=== PATIENT | male | born 1960 | race Caucasian/White ===

== ENCOUNTER 2020-11-12 01:35 | Outpatient (CLI) | payer OTHER, SELFPAY ==
--- NOTE | 2020-11-12 | DI.US_ITS ---
APPROVED REPORT EXAM: Comprehensive 2D, Doppler, and color-flow Echocardiogram Patient Location: Out-Patient Maintenance Painter: Meghann Trevino RDCS (AE) Indications: Murmur, HTN Other Information Study Quality: Good Conclusion Left Ventricle : The left ventricle is normal size. There is normal left ventricular wall thickness. The left ventricular ejection fraction is within the normal range. There is normal LV segmental wall motion. The left ventricular diastolic function is normal. LVEF is 58%. Right Ventricle : The right ventricle is normal size. The right ventricular systolic function is norm al. The RVSP is 22.6mmHg. Atria : The left atrium size is normal. The right atrium size is normal. Valves: There are no hemodynamically significant valvular lesions. Great Vessels : The aortic root is normal in size. The ascending aorta is normal in size. Aortic arch is normal in caliber. IVC is normal in size and collapses >50% with inspiration. Please see remainder of study for further details. Wall motion Left Ventricle The left ventricle is normal size. The left ventricular ejection fraction is within the normal range. There is normal left ventricular wall thickness. There is normal LV segmental wall motion. The left ventricular diastolic function is normal. There is no ventricular septal defect visualized. LVEF is 5 8%. Right Ventricle The right ventricle is normal size. The right ventricular systolic function is normal. The RVSP is 22 .6mmHg. Atria The left atrium size is normal. The right atrium size is normal. The interatrial septum is intact wit h no evidence for an atrial septal defect. Aortic Valve The Aortic valve is sclerotic. Aortic valve is trileaflet. No hemodynamically significant valvular ao rtic stenosis. Trace aortic regurgitation. Mitral Valve The mitral valve is normal in structure. No evidence of mitral valve stenosis. Trace mitral regurgita tion. Tricuspid Valve The tricuspid valve is normal in structure. There is no tricuspid valve stenosis. Trace tricuspid reg urgitation. Pulmonic Valve The pulmonary valve is normal in structure. There is no pulmonic valvular stenosis. Trace pulmonic re gurgitation. Great Vessels The aortic root is normal in size. The ascending aorta is normal in size. Aortic arch is normal in ca liber. IVC is normal in size and collapses >50% with inspiration. Pericardium There is no pericardial effusion. 2D Dimensions IVSD d PLAX 1.01 cm M: 0.6-1.2 LV Vol A2C d MOD 110.6 mL LVPW d PLAX 0.99 cm M: 0.6 - 1.2 LV Vol A4C d MOD 130.3 mL LVID d PLAX 4.63 cm M: 4.2 - 5.8 LA vol/ BSA A2C s A-L 25.2 mL/m2 LVDs 3.20 cm M: 2.5 - 4.0 LA vol/ BSA A4C s A-L 18.2 mL/m2 Ao Root d 2.79 cm M: 3.1 - 3.7 LA Vol/ BSA Biplane s A-L 21.6 mL/m2 RA Area A4C 13.86 cm2 LA Area A4C s MOD 16.17 cm2 RA Vol/ BSA A4C s A-L 14.7 mL/m2 LA Area A2C s MOD 18.85 cm2 Ao Asc Diam d 3.29 cm M: 2.6 - 3.4 LV EF A4C MOD 58.5 % LV EF Teichholz 57.7 % LV EF A2C MOD 58.1 % LVEF (Stone's) 57.85 % M: 52 - 72 LV EF Biplane MOD 57.9 % LV Volume 88.86 mL M: 62 - 150 SV 71.43 mL LV Volume Index 39.14 mL/m2 M: 34 - 74 SV Index 31.39 mL/m2 LV Vol Biplane MOD 123.5 mL FS 30.30 % M-Mode TAPSE 1.66 cm (M/F) >1.7 LV Diastology MV E' medial 0.065 (>0.07 m/s) E/A Ratio 1.1 LV E/e MED 12.00 (<14) MV E Vmax 0.78 (0.4-1.3 m/s) MV E' lateral 0.120 (>0.1 m/s) MV A Vmax 0.70 (0.4-1.3 m/s) LV E/e LAT 6.45 (<14) MV E/A Ratio 1.06 MV E/E' medial 12.05 MV E/E' lateral 6.46 Aortic Valve LVOT Area 3.01 cm2 AoV Area Vmax 1.78 cm2 LVOT Vmax 1.20 m/s AoV Area/ BSA (Vmax) 0.78 cm2/m2 LVOT Mean Brendan. 0.87 m/s SHARITA Mean Brendan. 1.76 cm2 LVOT Peak Grad 5.7 mmHg SHARITA Mean Brendan. Index 0.77 cm2/m2 LVOT Mean Grad 3.4 mmHg LVOT VTI 0.286 m LVOT Diam s 1.95 cm AoV Vmax 2.03 m/s Velocity Ratio 0.59 AoV Mean Brendan. 1.50 m/s AoV Peak Grad 16.5 mmHg LVOT SV 86.11 mL AoV Mean Grad 10.0 mmHg AoV VTI 0.484 m AoV Area VTI 1.78 cm2 AoV Area/ BSA (VTI) 0.78 cm/m2 Mitral Valve MV DT 222 (160-240 msec) MV PHT 64 msec MV Area PHT 3.42 cm2 MV VTI 0.280 m MV Area VTI 3.07 (4.0-6.0 cm2) Pulmonary Valve PV Vmax 1.13 (0.5-1.5 m/s) RVOT Peak Gr. 1.56 mmHg PV Peak Grad 5.1 mmHg RVOT Mean Gr. 0.70 mmHg PV Mean Grad 2.6 mmHg RVOT VTI 0.152 m PV VTI 0.240 m RVOT Vmax 0.62 m/s Tricuspid Valve TR Peak Grad 19.5 mmHg TR Vmax 2.21 m/s RA Pressure 3.00 mmHg RVSP (TR) 22.6 mmHg
== END 2020-11-12 01:55 ==
PROVIDERS: Visit Provider Nurse Practitioner Family
DX: R01.1 Cardiac murmur, unspecified (principal); I10 Essential (primary) hypertension
CPT/HCPCS: 93306

== ENCOUNTER → 2020-12-26 01:25 | Outpatient (CLI) | payer OTHER, SELFPAY ==
--- NOTE | 2020-12-26 09:00 | ETT_ITS ---
APPROVED REPORT Exam: Exercise Treadmill Patient Location: Out-Patient Room/Bed: Ordering Provider:BAL YAN, Contact Number: [phone] BMI: 34.14 Baseline Rhythm: Sinus Rhythm Comment: Rare PAC Indications: Chest pain, murmur, aortic valve stenosis Medical History Medical History: AV sclerosis, murmur, hypertension, hyperlipidemia, hx of meningioma Cardiac Medications: Lisinopril, hydrochlorothiazide, amlodipine Allergies: NKA Cardiac Risk Factors: Hypertension, hyperlipidemia, smoker, obesity Previous Cardiac Procedures: None Pretest Chest Pain Characteristics: None Exercise History: Sedentary Physical Disabilities: None Lung Sounds: Clear to auscultation Heart Sounds: Murmur Stress Test Details Test: Exercise stress testing was performed using a Carlos protocol. Rest Stress HR Resting HR Supine: 61 bpm Max Heart Rate (APMHR): 159 bpm Resting HR Standin bpm Target HR (85% APMHR): 135 bpm Max HR Achieved: 146 bpm % of APMHR: 91 Recovery HR: 97 bpm HR response to stress: Normal HR response to stress BP Resting BP Supine: 132/86 mmHg Resting BP Standin/80 mmHg Max BP: 162/66 mmHg Recovery BP: 148/80 mmHg BP response to stress: Normal blood pressure response to stress. ECG Resting ECG: Sinus Rhythm Ectopy: Rare PAC Stress ECG: Sinus Tachycardia ST Change: No significant ST segment changes noted Arrhythmia: Rare PVC Recovery ECG: Sinus Rhythm Recovery ST Change: No significant ST segment changes noted Recovery Arrhythmia: None Clinical Reason for Termination: Fatigue Stress Symptoms: General Fatigue Exercise duration: 10 min22 sec Highest Stage Reached: Stage 4: 4.2 mph at 16% grade. Exercise capacity: 12.41 METs Guzman Treadmill Score: 10 Rate Pressure Product: 55428 Stress ECG Conclusion 1. The patient exercised for 10 minutes (12.4 METS). Exercise was stopped due to fatigue. 2. The patient's blood pressure and heart rate augmented appropriately. 3. The patient no symptoms suggestive of ischemia 4. There is no evidence of ischemia on the ECG portion of the exam. Guzman Treadmill Score is 10 which is Low risk. Stress Test Summary STAGE Time (mins) Speed (mph) Grade (%) HR BP SYMPTOMS METS Supine 61 132/86 Standing 76 138/80 SpO2 98% 1 3 1.7 10 102 150/76 SpO2 98% 4.6 2 6 2.5 12 117 158/72 SpO2 97% 7 3 9 3.4 14 124 SpO2 97% 10.2 4 12 4.2 16 145 SpO2 97% 12.9 1 min recovery 125 162/66 SpO2 97% 3 min recovery 98 154/70 6 min recovery 97 148/80
== END ==
PROVIDERS: Visit Provider Nurse Practitioner Family
DX: R07.9 Chest pain, unspecified (principal); R01.1 Cardiac murmur, unspecified; I35.8 Other nonrheumatic aortic valve disorders; I10 Essential (primary) hypertension; E78.5 Hyperlipidemia, unspecified; F17.290 Nicotine dependence, other tobacco product, uncomplicated; Z87.898 Personal history of other specified conditions
CPT/HCPCS: 93017

== ENCOUNTER 2021-01-09 03:55 | Outpatient (CLI) | payer OTHER, SELFPAY ==
--- NOTE | 2021-01-23 08:51 | W.ZIOMONITOR ---
Date of service: 01/23/21 Time of Service: 08:51 14 Day Security Alarm Installer Referring Provider:: Evan Indications:: A Note: This is a 14-day monitor order for indication of chest pain. ?The patient was in normal sinus rhythm for the majority of the recording with an average heart rate of 74 bpm. ?There were 8 brief runs of supraventricular tachycardia with the longest lasting 11 beats. There were rare PACs. ?There were no episodes of ventricular tachycardia and no PVCs. ?There were no episodes of atrial fibrillation, no pauses greater than 3 seconds and no evidence of high degree heart block. ?There were 8 patient triggered events none of which were associated with any arrhythmia.
== END 2021-01-09 03:56 | disposition home or self-care (01) ==
LOC: RT 03:55
PROVIDERS: PCP Nurse Practitioner Family; Visit Provider Nurse Practitioner Family
DX: I35.8 Other nonrheumatic aortic valve disorders (principal); R07.9 Chest pain, unspecified; I47.1 Supraventricular tachycardia
CPT/HCPCS: 93246

== ENCOUNTER 2021-04-18 08:03 | Outpatient (REF) | payer OTHER, SELFPAY ==
--- OUTSIDE RECORDS SUMMARY | 2021-04-18 08:06 | XMS_ITS ---
:1960 Author Care Team Providers Name Role Phone CEZAR DÍAZ MD Primary Care Provider [phone] Allergies Code Code System Name Reaction Severity Status Onset NKDA ? Medications Name Status Start Date Stop Date ? ? amlodipine Active ? Not available 10 mg daily lisinopril 10 mg-hydrochlorothiazide 12.5 mg tablet Active ? Not available Take 1 tablet every day by oral route. Problems Name Status Onset Date Source ? Raised Prostate Specific Antigen Active 09/25/2019 ? Benign Prostatic Hyperplasia without Outflow Active 11/2019 ? Obstruction Procedures Date Name Performed by ? 06/21/2016 Total Excision of Meningioma Information not available 06/21/2009 Repair of Long Head of Biceps Brachii In formation not available Notes: left ? Hernia Repair Information not sander maurer Notes: x3 ? Right Total Orchidectomy Information not available Notes: due to sports injury ? Open Reduction of Fracture of Tibia Info rmation not available and Fibula Results Lab Results Date Name Specimen Result Interpretation Description Value Range Status Address ? 12/18/2019 PSA, Serum ? No observation ? ? ? [facility]. [facility] : [address] Past Encounters 05/15/2020 Raised Prostate Specific Antigen; Benign Prostatic Hyperplasia without Outflow Obstruction KELECHI Trevino: [address] [place] [id number], Ph. Social History Tobacco Smoking Status Former Smoker Notes: occasio nal cigar Vaccine List None recorded. Plan of Care Reminders Provider Appointments None ? ? recorded. Lab None ? ? recorded. Referral None ? ? recorded. Procedures None ? ? recorded. Surgeries None ? ? recorded. Imaging None ? ? recorded. Vitals None recorded.
[2021-04-18 14:43] LABS: Calculated LDL 116 mg/dL (<100); Cholesterol 188 mg/dL (<200); Glucose 137 mg/dL (74-106); HDL Cholesterol 35 mg/dL (40-60); Triglyceride 185 mg/dL (<150)
[2021-04-18 14:49] LABS: Hemoglobin A1C 6.5 % (<5.7)
== END 2021-04-18 08:04 | disposition home or self-care (01) ==
LOC: NCHCN 08:03
PROVIDERS: PCP Nurse Practitioner Family; Visit Provider Nurse Practitioner Family
DX: E78.5 Hyperlipidemia, unspecified (principal); R73.03 Prediabetes
CPT/HCPCS: 80061; 82947; 83036

== ENCOUNTER 2021-08-04 18:37 | Outpatient (REF) | payer OTHER, SELFPAY ==
[2021-08-04 21:07] LABS: COMMENT (LAB VIEW ONLY) 127.14 mg/dL; Microalb ug/mg Crea 8.9 ug/mg Cr
== END 2021-08-04 18:38 | disposition home or self-care (01) ==
LOC: NCHCN 18:37
PROVIDERS: PCP Nurse Practitioner Family; Visit Provider Nurse Practitioner Family
DX: E11.9 Type 2 diabetes mellitus without complications (principal)
CPT/HCPCS: 82043; 82570

== ENCOUNTER 2021-11-06 10:08 | Outpatient (REF) | payer OTHER, SELFPAY ==
[2021-11-06 15:00] LABS: HCT 44.7 % (40.0-50.0); HGB 14.7 g/dL (13.5-17.5); MCH 27.4 pg (27.0-33.0); MCHC 32.9 % (32.0-36.0); MCV 83 fL (80-95); MPV 10.2 fL (8.0-11.0); Platelet Count 239 10^3/uL (130-400); RBC 5.37 10^6/uL (4.36-5.78); RDW 13.2 % (11.8-14.1); RDW-SD 39.9 fL; WBC 4.93 10^3/uL (4.4-10.8)
[2021-11-06 15:17] LABS: C-Reactive Protein 0.27 mg/dL (0.0-0.3)
[2021-11-06 17:32] LABS: ESR 9 mm/hr (0-20)
== END 2021-11-06 10:09 | disposition home or self-care (01) ==
LOC: NCHCN 10:08
PROVIDERS: PCP Nurse Practitioner Family; Visit Provider Nurse Practitioner Family
DX: M25.50 Pain in unspecified joint (principal); M25.511 Pain in right shoulder; M79.604 Pain in right leg; M79.605 Pain in left leg
CPT/HCPCS: 85027; 85652; 86140

== ENCOUNTER 2021-12-13 11:32 | Emergency (ER) | payer BC, SELFPAY ==
--- NOTE | 2021-12-13 11:34 | ED.GENADUL_ITS ---
Discharge Plan Disposition Patient Disposition: HOME Condition: Stable Discharge Details Clinical Impression: Acute urinary retention Primary Care Provider: Rita Cross ED Provider: Angeline Inman Home Meds and New Rx's Prescriptions: New tamsulosin [Flomax] 0.4 mg capsule 0.4 mg PO DAILY Qty: 10 0RF Continued atorvastatin 40 mg tablet 40 tab PO DAILY Label Comments: TAKE 1 TABLET BY MOUTH AT BEDTIME fenofibrate micronized 200 mg capsule 1 cap PO DAILY Label Comments: Take 1 capsule by mouth once a day amlodipine 10 mg tablet 10 tab PO DAILY Label Comments: Take 1 tablet by mouth once a day lisinopril-hydrochlorothiazide 10-12.5 mg tablet 1 tab PO DAILY Label Comments: Take 1 tablet by mouth once a day metformin 500 mg tablet extended release 24 hr 1 tab PO DAILY Discharge Instructions Instructions: Urinary Retention in Men (ED) Additional Instructions: Your lab work today is reassuring and shows no evidence of acute concerning or significant findings. Keep your Bhardwaj catheter in place until follow-up with urology in 1 week. Drink plenty of fluids and get plenty of rest. A prescription for Flomax which can help with urinary retention has been sent electronically to your pharmacy to take as directed until follow-up with urology. You have been placed on urology follow-up list for reevaluation. Return immediately to the emergency department if you develop any worsening or new concerning symptoms. Referrals: Fracnis Rodney MD [ [facility] ST[facility]FF [facility]YSICIAN] - Discharge Data Discharge Date/Time-TO BE ENTERED AT DEPARTURE: 12/13/21 14:35 Discharge Physician: Angeline Inman Medical Decision Making 61-year-old male with a history of obesity, hypertension, diabetes presents with inability to urinate and suprapubic pressure since last night. Vitals within normal limits. Patient appears comfortable and nontoxic. Bladder scan noted 500 cc of urine. Patient's abdomen is soft with suprapubic tenderness. Normal exam. As he appears comfortable without vomiting, do not see indication for imaging. Differential diagnosis includes UTI, urinary retention associated with BPH, dehydration. Will obtain screening labs, urinalysis and place a Bhardwaj catheter. Labs reviewed and unremarkable. Normal white blood cell count. Normal renal function. Urinalysis negative for acute findings. Patient reassessed and he feels significantly better. 600 cc of urine was removed with Bhardwaj placement. We will keep Bhardwaj catheter in place and treat with Flomax. Patient placed on urology follow-up list for possible bhardwaj removal in 1 week. A prescription for Flomax sent electronically to his pharmacy. Usual and customary return precautions given prior to discharge. Medical Records Medical records reviewed: Yes I reviewed the patient's medical records. Lab Data Lab results reviewed: Yes I reviewed the patient's lab results. Labs: Laboratory Tests Range/Units 12/13/21 12/13/21 12/13/21 11:55 11:55 11:55 WBC (4.4-10.8) 10^3/uL 6.69 RBC (4.36-5.78) 10^6/uL 5.17 Hgb (13.5-17.5) g/dL 14.1 Hct (40.0-50.0) % 42.5 MCV (80-95) fL 82 MCH (27.0-33.0) pg 27.3 MCHC (32.0-36.0) % 33.2 RDW (11.8-14.1) % 13.3 Plt Count (130-400) 10^3/uL 201 MPV (8.0-11.0) fL 9.7 Immature Gran % 0.1 Neutrophils % 68.1 Lymphocytes % 24.2 Monocytes % 7.2 Eosinophils % 0.1 Basophils % 0.3 Nucleated RBC % (0.0-0.3) % 0.0 Absolute Neutrophils (1.2-6.7) 10^3/uL 4.55 Absolute Lymphocytes (1.2-3.4) 10^3/uL 1.62 Absolute Monocytes (0.1-0.8) 10^3/uL 0.48 Absolute Eosinophils (0.0-0.7) 10^3/uL 0.01 Absolute Basophils (0.0-0.2) 10^3/uL 0.02 Sodium (136-145) mmol/L 141 Potassium (3.5-5.1) mmol/L 4.0 Chloride (98-107) mmol/L 105 Carbon Dioxide (21.0-32.0) mmol/L 26.8 Anion Gap (3-11) mmol/L 9.2 BUN (7-18) mg/dL 16 Creatinine (0.70-1.30) mg/dL 1.0 Estimated GFR/1.73 m2 (mL/min/1.73m2) >= 60.00 Glucose (74-106) mg/dL 108 H Calcium (8.5-10.1) mg/dL 9.0 Total Bilirubin (0.2-1.0) mg/dL 0.5 Conjugated Bilirubin (0.0-0.2) mg/dL 0.2 AST (15-37) U/L 24 ALT (16-63) U/L 36 Alkaline Phosphatase (46-116) U/L 72 Total Protein (6.4-8.2) g/dL 7.7 Albumin (3.4-5.0) g/dL 4.4 Urine Color (Yellow) Urine Clarity (Clear) Urine pH (5-8) Ur Specific [place] (1.005-1.025) Urine Protein (Negative) mg/dL Urine Ketones (Negative) mg/dL Urine Blood (Negative) Urine Nitrite (Negative) Urine Bilirubin (Negative) Urine Urobilinogen (Up TO 0.2) EU/dL Ur Leukocyte Esterase (Negative) Urine Glucose (Negative) mg/dL Range/Units 12/13/21 12:10 WBC (4.4-10.8) 10^3/uL RBC (4.36-5.78) 10^6/uL Hgb (13.5-17.5) g/dL Hct (40.0-50.0) % MCV (80-95) fL MCH (27.0-33.0) pg MCHC (32.0-36.0) % RDW (11.8-14.1) % Plt Count (130-400) 10^3/uL MPV (8.0-11.0) fL Immature Gran % Neutrophils % Lymphocytes % Monocytes % Eosinophils % Basophils % Nucleated RBC % (0.0-0.3) % Absolute Neutrophils (1.2-6.7) 10^3/uL Absolute Lymphocytes (1.2-3.4) 10^3/uL Absolute Monocytes (0.1-0.8) 10^3/uL Absolute Eosinophils (0.0-0.7) 10^3/uL Absolute Basophils (0.0-0.2) 10^3/uL Sodium (136-145) mmol/L Potassium (3.5-5.1) mmol/L Chloride (98-107) mmol/L Carbon Dioxide (21.0-32.0) mmol/L Anion Gap (3-11) mmol/L BUN (7-18) mg/dL Creatinine (0.70-1.30) mg/dL Estimated GFR/1.73 m2 (mL/min/1.73m2) Glucose (74-106) mg/dL Calcium (8.5-10.1) mg/dL Total Bilirubin (0.2-1.0) mg/dL Conjugated Bilirubin (0.0-0.2) mg/dL AST (15-37) U/L ALT (16-63) U/L Alkaline Phosphatase (46-116) U/L Total Protein (6.4-8.2) g/dL Albumin (3.4-5.0) g/dL Urine Color (Yellow) Yellow Urine Clarity (Clear) Clear Urine pH (5-8) 6.5 Ur Specific [place] (1.005-1.025) 1.020 Urine Protein (Negative) mg/dL Negative Urine Ketones (Negative) mg/dL Negative Urine Blood (Negative) Negative Urine Nitrite (Negative) Negative Urine Bilirubin (Negative) Negative Urine Urobilinogen (Up TO 0.2) EU/dL 0.2 Ur Leukocyte Esterase (Negative) Negative Urine Glucose (Negative) mg/dL Negative HPI General Mode of arrival: ambulatory . Date/Time Provider Initiated Documentation: 12/13/21 11:33 . Limitations to Documentation: no limitations . Information obtained by: patient . HPI Narrative: Patient is a 61-year-old male with a history of obesity, hypertension, diabetes who presents with inability to urinate since last night. He states he has noted some dribbling of urine since then but no significant amount of urination. He admits to the suprapubic pressure. He denies any fever, nausea, vomiting, back pain, hematuria, discharge. He states he has never had this problem before and has never seen urology. Related Data Home Medications Medication Instructions Recorded Confirmed amlodipine 10 mg tablet 10 tab PO DAILY 12/13/21 12/13/21 atorvastatin 40 mg tablet 40 tab PO DAILY 12/13/21 12/13/21 fenofibrate micronized 200 mg 1 cap PO DAILY 12/13/21 12/13/21 capsule lisinopril 10 1 tab PO DAILY 12/13/21 12/13/21 mg-hydrochlorothiazide 12.5 mg tablet metformin 500 mg tablet,extended 1 tab PO DAILY 12/13/21 12/13/21 release 24 hr tamsulosin 0.4 mg capsule (Flomax) 0.4 mg PO DAILY #10 caps 12/13/21 Previous Rx's Medication Instructions Recorded tamsulosin 0.4 mg capsule (Flomax) 0.4 mg PO DAILY #10 caps 12/13/21 Allergies Allergy/AdvReac Type Severity Reaction Status Date / Time No Known Allergies Allergy Unverified 12/13/21 11:41 General Stated Complaint: Urinary Review of Systems All systems reviewed & are unremarkable except as noted in HPI and below Constitutional Constitutional: Denies chills, Denies excessive sweating, Denies fatigue, Denies fever(s), Denies weakness and Denies weight loss Eyes Eyes: Reports system reviewed and no additional complaints, except as documented and Denies blurry vision ENT Ears, Nose, Mouth, and Throat: Denies vertigo, Denies dizziness, Denies otalgia, Denies nasal congestion, Denies sore throat and Denies throat swelling Cardiovascular Cardiovascular: Denies chest pain, Denies syncope, Denies rapid heart rate and Denies dyspnea Respiratory Respiratory: Denies chest congestion, Denies cough, Denies pain on inspiration and Denies dyspnea Gastrointestinal Gastrointestinal: Denies abdominal pain, Denies diarrhea and Denies vomiting Genitourinary Genitourinary: Denies hematuria, Reports difficulty urinating, Denies dysuria and Denies flank pain Musculoskeletal Musculoskeletal: Denies back pain and Denies joint swelling Integumentary/Breasts Skin/Breast: Denies lesions and Denies rash Neurologic Neurologic: Denies behavioral changes, Denies confusion, Denies vertigo, Denies dizziness, Denies syncope, Denies localized weakness and Denies weakness Psychiatric Psychiatric: Denies behavioral changes, Denies confusion and Denies depression Endocrine Endocrine: Denies excessive sweating and Denies fatigue Hematologic/Lymphatic Hematologic/Lymphatic: Denies easy bruising and Denies lymphadenopathy Allergic/Immunologic Allergic/Immunologic: Denies throat swelling PFSH All Active Problems (Updated 12/13/21 @ 12:22 by Angeline Inman DO) Acute urinary retention (Acute) Medical History (Updated 12/13/21 @ 12:22 by Angeline J Bugbee, DO) Diabetes HTN (hypertension) Obesity Surgical History (Updated 12/13/21 @ 12:11 by Angeline Inman DO) Biceps muscle tear with repair Fracture of left leg with repair Meningioma with resection Social History Smoking/Tobacco Use Status: Current-Occasional Tobacco Type: cigars Smoking risk assessment performed?: Yes Alcohol Intake: never Drug use: Never Substance use type: does not use Do you feel safe at home: Yes Do you feel safe in your relationship?: Yes Exam Const General: cooperative Orientation: alert, awake and oriented x3 HENMT Head: normal to inspection Ears: hearing grossly normal bilaterally, external ears normal and TM's normal bilaterally General nose exam: external nose normal Face and sinus: normal facial exam Mouth: oral mucosae normal Teeth and gingiva: dentition normal Throat: posterior oropharynx normal Eyes General: appearance normal, both eyes and all related structures Eyelids: eyelids normal Pupils: PERRL EOM: EOM intact bilaterally Neck Neck: normal visual inspection Lymphatic: no lymphadenopathy noted Chest Chest: normal inspection of the chest Resp Effort & Inspection: normal respiratory effort and able to speak in complete sentences Auscultation: clear to auscultation bilaterally Cardio Rate: regular rate Rhythm: regular rhythm GI Inspection: normal to inspection Palpation: soft, not firm, no guarding, no hepatosplenomegaly, no masses and tender suprapubicly Auscultation: normal bowel sounds Male General Exam: Yes normal external exam Penis: normal penis Scrotum: scrotum normal Back/Spine/Pelvis Back: no CVA tenderness Skin General skin exam: no rashes or lesions noted Neuro General: patient alert and patient awake Cognition: normal cognition Speech: speech normal Gait: normal gait Motor: muscle tone normal throughout Sensory Exam: no sensory deficits noted Extrem General: normal to inspection, full ROM and capillary refill normal Psych Appearance: grossly normal Mental Status: mental status grossly normal Speech and Movement: speech and movement normal Affect: normal affect Thought Process: normal
[2021-12-13 11:35] VITALS: BP 142/74; PULSE 69; RESP 18; TEMP 36.6; O2SAT 99
[2021-12-13 12:04] LABS: Abs Immature Grans 0.01 10^3/uL (0.0-0.06); Absolute Basophil Count 0.02 10^3/uL (0.0-0.2); Absolute Eosinophil Count 0.01 10^3/uL (0.0-0.7); Absolute Lymphocyte Count 1.62 10^3/uL (1.2-3.4); Absolute Monocyte Count 0.48 10^3/uL (0.1-0.8); Absolute Neutrophil Count 4.55 10^3/uL (1.2-6.7); Basophils % 0.3; Eosinophils % 0.1; HCT 42.5 % (40.0-50.0); HGB 14.1 g/dL (13.5-17.5); Immature Grans % 0.1; Lymphocytes % 24.2; MCH 27.3 pg (27.0-33.0); MCHC 33.2 % (32.0-36.0); MCV 82 fL (80-95); MPV 9.7 fL (8.0-11.0); Monocytes % 7.2; Neutrophils % 68.1; Platelet Count 201 10^3/uL (130-400); RBC 5.17 10^6/uL (4.36-5.78); RDW 13.3 % (11.8-14.1); RDW-SD 39.8 fL; WBC 6.69 10^3/uL (4.4-10.8)
[2021-12-13] MEDS: Lidocaine 2% Jelly 6 ML SYR (12:05)
[2021-12-13 12:11] LABS: Anion Gap 9.2 mmol/L (3-11); BUN 16 mg/dL (7-18); CO2 26.8 mmol/L (21.0-32.0); Chloride 105 mmol/L (98-107); Glucose 108 mg/dL (74-106); Sodium 141 mmol/L (136-145)
[2021-12-13 12:25] LABS: Bilirubin Negative (Negative); Blood Negative (Negative); Clarity Clear (Clear); Glucose Negative (Negative); Ketones Negative (Negative); Leukocyte Esterase Negative (Negative); Nitrite Negative (Negative); Urobilinogen 0.2 EU/dL (Up TO 0.2); pH 6.5 (5-8)
[2021-12-13 12:32] LABS: ALT 36 U/L (16-63); AST 24 U/L (15-37); Albumin 4.4 g/dL (3.4-5.0); Alkaline Phosphatase 72 U/L (46-116); Bilirubin, Direct 0.2 mg/dL (0.0-0.2); Bilirubin, Total 0.5 mg/dL (0.2-1.0); Total Protein 7.7 g/dL (6.4-8.2)
[2021-12-13] MEDS: Tamsulosin 0.4 MG CAPCR PO ×2 (13:20)
== END 2021-12-13 14:35 | disposition home or self-care (01) ==
PROVIDERS: Emergency Provider Physician Assistant; PCP Nurse Practitioner Family
DX: R33.9 Retention of urine, unspecified (principal); I10 Essential (primary) hypertension; E11.9 Type 2 diabetes mellitus without complications; F17.290 Nicotine dependence, other tobacco product, uncomplicated; Z79.84 Long term (current) use of oral hypoglycemic drugs
CPT/HCPCS: 36415; 51702; 80048; 80076; 99283; 81003; 85025; 99284

== ENCOUNTER 2022-03-26 05:57 | Day surgery (SDC) | payer BC, SELFPAY ==
--- NOTE | 2022-03-26 05:31 | W.PM.DSUDISC ---
Discharge Plan Disposition Patient Disposition: HOME Condition: Good Discharge Details Reason For Visit: Screening colonoscopy Attending Provider: Edu Ruano Primary Care Provider: Rita Cross Home Meds and New Rx's Prescriptions: Continued multivitamin-calcium carb-iron Tablet 1 tab PO DAILY atorvastatin 40 mg tablet 40 tab PO DAILY Label Comments: TAKE 1 TABLET BY MOUTH AT BEDTIME fenofibrate micronized 200 mg capsule 1 cap PO DAILY Label Comments: Take 1 capsule by mouth once a day lisinopril-hydrochlorothiazide 10-12.5 mg tablet 1 tab PO DAILY Label Comments: Take 1 tablet by mouth once a day metformin 500 mg tablet extended release 24 hr 1 tab PO DAILY tamsulosin [Flomax] 0.4 mg capsule 0.4 mg PO DAILY Qty: 10 0RF Discontinued polyethylene glycol 3350 17 gram/dose powder 238 g PO ONCE Qty: 238 0RF Rx Instructions: take per colonoscopy instructions bisacodyl [Dulcolax (bisacodyl)] 5 mg tablet,delayed release (DR/EC) 5 mg PO ONCE Qty: 4 0RF Rx Instructions: take per colonoscopy instructions Discharge Instructions Instructions: Colorectal Polyps (DC) Additional Instructions: 1. If tolerated, consume a soft, low fiber diet for 1-2 days. [address] not drive, drink alcohol, operate machinery, make critical decisions, or do activities that require coordination or balance for 24 hours. 3. Because air was put into your colon during the procedure, expelling air from your rectum (passing gas or farting) is normal. 4. You may not have a bowel movement for 1-3 days because of the colonoscopy prep. This is normal. 5. Go directly to the emergency room if you notice any of the following: Develop chills (warm to touch), or if you have a thermometer and your temperature is above 101 Difficulty breathing or difficultly swallowing Persistent vomiting Severe abdominal pain, other than gas cramps Severe chest pain Black, tarry stools Any bleeding ? exceeding one tablespoon 6. Call your physician if the site where your intravenous was started becomes red, swollen, painful, and warm to touch. 7. Your physician has reviewed your pre-procedure medications. Please continue to take those medications as previously ordered. You will be given specific information/education regarding any changes to your medications before leaving. Activity:: Activity as Tolerated Diet:: As Tolerated Discharge Orders Discharge Orders: Discharge Order (Routine); Ordered 03/26/22 Ordered By: Edu Ruano DS: Diagnosis Discharge Diagnosis (1) Cecal polyp: Asessment and Plan: I will call you with the results of the biopsy
--- NOTE | 2022-03-26 05:35 | W.COLOREPORT ---
Colonoscopy Report Date of procedure: 03/26/22 Pre-op diagnosis general: Screening colonoscopy routine health maintenance Post-op diagnosis procedure note: other (Cecal polyp) Procedure: Colonoscopy Surgeon: Edu Ruano Anesthesia Type: General:No Airway Estimated blood loss (mL): 10 Pathology: other (Cecal polyp) Complications: None Disposition: same day Indications: Joshua is 61 years old and presents for screening colonoscopy as part of routine health maintenance. Prep: Miralax/Dulcolax Procedure Start Time: 07:30 Procedure End Time: 07:47 Retraction Time: 13 Findings: Cecal polyp Procedure Description: After the induction of monitored anesthetic care, and with the patient in left lateral decubitus position, I began by performing an external anorectal exam.? Perineum and skin were normal, as was the anal verge.? There was no evidence of external hemorrhoids.? Next, I performed a digital rectal exam.? I did not appreciate any abnormal findings.? Next, I advanced a colonoscope into the rectal vault.? I performed retroflexion.? There were mild internal hemorrhoids.? Using insufflation, I then advanced the colonoscope beyond the rectal folds and into the sigmoid colon before advancing towards the cecum.? The quality of the prep was adequate.? The scope was noted to be in the cecum by identification of the ileocecal valve and appendiceal orifice.? Immediately adjacent to the appendiceal orifice was a small polyp. ?It appeared sessile and 0.5 cm in character. ?I was able to remove this with a cold forceps. ?I examined the site, and there was minimal bleeding. ?Once this was completed, I continued to withdraw the scope and examine the remainder of the colonic mucosa. I then began withdrawing the colonoscope using repeated irrigation as necessary for full evaluation of the colonic mucosa. ?Once the scope was withdrawn to the level of the rectum, great care was taken to examine portions of the rectal folds.? Finally, the scope was withdrawn and the patient was brought to the same-day surgery recovery unit as the anesthetic wore off. ?The findings and instructions were shared with the patient prior to discharge.
[2022-03-26 06:20] VITALS: BP 140/95; PULSE 57; RESP 16; TEMP 36.6; O2SAT 97
[2022-03-26] MEDS: Lactated Ringers 1,000 ML 80 ML IV (06:50)
--- NOTE | 2022-03-26 07:11 | W.ANESPRE ---
General Info Date of Service Date Performed: 03/26/22 Height: 5 ft 10 in Weight: 105 kg Body Mass Index (BMI): 33.2 Surgical Procedure: Operation Date: 03/26/22 07:35 Proposed Procedure Side Surgeon p Hanny Ruano MD Meds Allergies and Home Medications Allergies Allergy/AdvReac Type Severity Reaction Status Date / Time No Known Allergies Allergy Unverified 03/26/22 06:25 Home Medication Medication Instructions Recorded atorvastatin 40 mg tablet 40 tab PO DAILY 12/13/21 fenofibrate micronized 200 mg 1 cap PO DAILY 12/13/21 capsule lisinopril 10 1 tab PO DAILY 12/13/21 mg-hydrochlorothiazide 12.5 mg tablet metformin 500 mg tablet,extended 1 tab PO DAILY 12/13/21 release 24 hr tamsulosin 0.4 mg capsule (Flomax) 0.4 mg PO DAILY #10 caps 12/13/21 multivitamin with calcium carb and 1 tab PO DAILY 03/11/22 iron tablet Current Visit Medications: Current Medications Generic Name Dose Route Start Last Admin Trade Name Peteq PRN Reason Stop Dose Admin Hyoscyamine Sulfate 0.125 mg 03/26/22 05:34 Hyoscyamine 0.125 Mg Sl/Oral/Chew SL DIRECTED PRN Ringer's Solution 1,000 mls @ 80 mls/hr 03/26/22 06:00 03/26/22 06:50 IV 04/24/22 23:59 80 mls/hr INFUSION MARLENI Administration IV Miscellaneous Supplies 1 each 03/26/22 06:00 Iv Access IV 04/24/22 23:59 DIRECTED MARLENI Ondansetron HCl 4 mg 03/26/22 05:34 Ondansetron 4 Mg/2 Ml Vial IVP Q4H PRN PRN Nausea / Vomiting Sodium Chloride 0 ml 03/26/22 06:00 Normal Saline Flush 10 Ml Syr IV 04/24/22 23:59 PRN PRN Sodium Chloride 0 ml 03/26/22 06:00 Normal Saline 10 Ml Vial IJ 04/24/22 23:59 DIRECTED PRN Sterile Water 0 ml 03/26/22 06:00 Water,Injection,Sterile 10 Ml Vial IJ 04/24/22 23:59 DIRECTED PRN PFSH Active Problems Active Problems: Problem Status Onset Code Aortic valve 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 Screening for colon cancer Z12.11 Medical History Medical History (Updated 03/26/22 @ 06:24 by Abeba Grajeda) Bilateral leg pain Diabetes HTN (hypertension) Metabolic syndrome Obesity Pain, joint, shoulder Torsion of right testicle Trauma; removed 1971 Surgical History Surgical History Biceps muscle tear with repair Fracture of left leg with repair Meningioma with resection S/P ventral herniorrhaphy Tobacco Smoking/Tobacco Use Status: Current-Occasional Tobacco Type: cigars Alcohol Alcohol Intake: current Alcohol intake frequency: a few times a month Alcohol type: hard liquor Substance Use Substance use: Never Substance use type: does not use Vital Signs and Lab Results Vital Signs Most Recent Vital Signs in EMR: Most Recent Vital Signs Temp Pulse Resp BP Pulse Ox 36.6 C 57 L 16 140/95 H 97 03/26/22 06:20 03/26/22 06:20 03/26/22 06:20 03/26/22 06:20 03/26/22 06:20 Point of Care Results Point of Care Results: Finger Stick Blood Glucose 107 03/26/22 07:04 Lab Results Blood Type / Crossmatch: No Data to Display Complete Blood Count: No Data to Display Complete Metabolic Panel: No Data to Display Liver Function Panel: No Data to Display Coagulation Panel: No Data to Display Cardiac Panel: No Data to Display Arterial Blood Gas: No Data to Display Venous Blood Gas: No Data to Display Pancreas Panel: No Data to Display Thyroid Panel: No Data to Display Infectious Disease: No Data to Display Blood Cultures: No Data to Display Toxicology Panel: No Data to Display Imaging and Studies Imaging and Studies Study information below may be from another EMR and interpreted by another provider. Please see original notes in EMR for more complete details. Stress Test Summary: 12/26/2020 Stress ECG Conclusion 1. The patient exercised for 10 minutes (12.4 METS). Exercise was stopped due to fatigue. 2. The patient's blood pressure and heart rate augmented appropriately. 3. The patient no symptoms suggestive of ischemia 4. There is no evidence of ischemia on the ECG portion of the exam. Guzman Treadmill Score is 10 which is Low risk. Echocardiogram Summary: Admission Date: 11/12/20 : 1960 Age: 60 APPROVED REPORT EXAM: Comprehensive 2D, Doppler, and color-flow Echocardiogram Patient Location: Out-Patient Medical Transcriber: Meghann Trevino RDCS (AE) Indications: Murmur, HTN Other Information Study Quality: Good Conclusion Left Ventricle : The left ventricle is normal size. There is normal left ventricular wall thickness. The left ventricular ejection fraction is within the normal range. There is normal LV segmental wall motion. The left ventricular diastolic function is normal. LVEF is 58%. Right Ventricle : The right ventricle is normal size. The right ventricular systolic function is normal. The RVSP is 22.6mmHg. Atria : The left atrium size is normal. The right atrium size is normal. Valves: There are no hemodynamically significant valvular lesions. Great Vessels : The aortic root is normal in size. The ascending aorta is normal in size. Aortic arch is normal in caliber. IVC is normal in size and collapses >50% with inspiration. Please see remainder of study for further details. Anesthesia Assessment and Plan Anesthesia History Personal History: No History of Anesthesia Complications Family History: No Family History of Anesthesia Complications Exercise Tolerance Exercise Tolerance: Metabolic Equivalents>4 Pertinent Negatives Pertinent Negatives: No Symptoms of GERD, No Major Pulmonary Symptoms or Complaints and No History of CVA/TIA Cardiac & Pulmonary Exam Cardiac Exam: Heart Murmur Present (Not appreciated today) Pulmonary Exam: Clear Bilateral Breath Sounds Implantable Cardiac Device Does patient have a Pacemaker or an ICD?: No Airway Exam Known Difficult Airway: No Mallampati Class: 1 Mouth Opening: Normal (> 3cm) Thyromental Distance: Greater than 3 cm Neck Range of Motion: Full ROM Neck Circumference: Normal Teeth Condition: Normal Dentition ASA Classification ASA Score: ASA 3 Emergency Case?: No NPO Status NPO Status: NPO Clears >2 hours, Solids >8 hours Anesthesia Plan Resuscitation Status: Full Code Anesthesia Technique: General Anesthesia Airway Planned: Natural Airway Monitors Used: Standard Monitors
[2022-03-26 07:24] VITALS: BMI 33.2
--- NOTE | 2022-03-26 07:39 | BOWEL_PTH ---
PATIENT: Joshua Mcgowan JR LOC: [facility] U#:[id number] AGE/SX: 61/M ROOM: RE03/26/[address]: Edu Ruano MD : 1960 BED: DIS: 03/26/2022 SPEC #: [id number] RECD: 03/26/22 12:46 STATUS: RICHIE REQ #: [id number] GIRMA: 03/26/22 07:[address]: Edu Ruano DEPT: Surgical Specimen RECD BY: Sharmaine Roger ENTERED: 03/26/22 12:47 SP TYPE: Bowel OTHR DR: Rita Cross Tissues: 1 - BIOPSY BOWEL Procedures: GROSS AND MICRO LEVEL 4 Comments: [id number]
[2022-03-26 07:58] VITALS: BP 111/65; PULSE 66; RESP 16; TEMP 36.3; O2SAT 96
[2022-03-26 08:38] VITALS: BP 135/90; PULSE 56; RESP 16; TEMP 36.6; O2SAT 98
--- NOTE | 2022-03-26 09:21 | W.ANESPOSTOP ---
Postoperative Evaluation Date, Time and Location Date Performed: 03/26/22 Time Performed: 09:21 Patient Location: Day Surgery Unit Vital Signs Most Recent Imported Vital Signs: Most Recent Vital Signs Temp Pulse Resp BP Pulse Ox 36.6 C 56 L 16 135/90 98 03/26/22 08:38 03/26/22 08:38 03/26/22 08:38 03/26/22 08:38 03/26/22 08:38 Pain Score Most Recent Pain Score: Most Recent Pain Score Pain Level 0 03/26/22 08:38 Assessment Mental Status: Awake (Alert & Oriented to Patient Baseline) Airway and Respiratory Function: Patent airway with normal (patient baseline) respiratory exam Cardiovascular Function: Hemodynamically Stable Hydration Status: Adequately Hydrated Nausea & Vomiting: No Nausea or Vomiting Pain: Pt. Denies Any Pain Peripheral Nerve Block: Patient did not receive a nerve block Postoperative Comments:: Seen earlier today, denied any questions.
== END 2022-03-26 09:24 | disposition home or self-care (01) ==
LOC: SUR 05:57
PROVIDERS: PCP Nurse Practitioner Family; Visit Provider Surgery
PROC: 0DJD8ZZ Inspection of Lower Intestinal Tract, Via Natural or Artificial Opening Endoscopic (ICD-10-PCS; CPT 45378; principal; 2022-03-26 07:30)
DX: Z12.11 Encounter for screening for malignant neoplasm of colon (principal); E11.9 Type 2 diabetes mellitus without complications; I10 Essential (primary) hypertension; K63.5 Polyp of colon
CPT/HCPCS: 45380; 88305

== ENCOUNTER 2023-01-05 15:42 | Outpatient (CLI) | payer BC, SELFPAY ==
[2023-01-05 08:31] LABS: Hemoglobin A1C 6.2 % (<5.7)
[2023-01-05 08:40] LABS: Microalb ug/mg Crea 5.7 ug/mg Cr
[2023-01-05 08:41] LABS: ALT 28 U/L (16-63); AST 17 U/L (15-37); Albumin 4.2 g/dL (3.4-5.0); Alkaline Phosphatase 55 U/L (46-116); Anion Gap 10.4 mmol/L (3-11); BUN 18 mg/dL (7-18); Bilirubin, Total 0.5 mg/dL (0.2-1.0); CO2 26.6 mmol/L (21.0-32.0); CREATININE 1.4 mg/dL (0.70-1.30); Calcium 9.3 mg/dL (8.5-10.1); Calculated LDL 60 mg/dL (<100); Chloride 104 mmol/L (98-107); Cholesterol 113 mg/dL (<200); Estimated GFR 56.48 (mL/min/1.73m2); Glucose 107 mg/dL (74-106); HDL Cholesterol 38 mg/dL (40-60); Potassium 3.7 mmol/L (3.5-5.1); Sodium 141 mmol/L (136-145); Total Protein 7.5 g/dL (6.4-8.2); Triglyceride 76 mg/dL (<150)
--- OUTSIDE RECORDS SUMMARY | 2023-01-05 15:58 | XMS_ITS ---
Author Name Rambo Sexton Address [address] [place] [id number] Organization [facility] Address [address] [address] Care Team Providers Care Wafer Fabrication Operator Name Role Phone Rambo Sexton Unavailable [phone] PROBLEMS Unknown Problems ALLERGIES No Information ENCOUNTERS Encounter Location Date Diagnosis [facility] [place] [id number] [place] [id number] Aug, Routine adult health maintenance Z00.00 [facility] [place] [id number] [place] [address] [address] [place] [address] Feb, Routine adult health maintenance Z00.00 IMMUNIZATIONS No Known Immunizations SOCIAL HISTORY Never Assessed REASON FOR REFERRAL FUNCTIONAL STATUS PLAN OF CARE Activity Details VITAL SIGNS Temperature 98 degrees Fahrenheit 2020-09-05 Temperature 98 degrees Fahrenheit 2020-03-11 Heart Rate 77 /min 2020-09-05 Heart Rate 75 /min 2020-03-11 Height 70 in 2020-09-05 Height 70 in 2020-03-11 Weight 253 lbs 2020-09-05 Weight 233 lbs 2020-03-11 BMI 36.3 kg/m2 2020-09-05 BMI 33.43 kg/m2 2020-03-11 Respiratory Rate 18 /min 2020-09-05 Respiratory Rate 18 /min 2020-03-11 Blood pressure systolic 153 mm Hg Blood pressure diastolic 84 mm Hg 2020-08 MEDICATIONS Unknown Medications PROCEDURES Procedure Date Ordered Result Body Site FAA Mar 11, 2020 FAA September 05, 2020 RESULTS Name Result Date Reference Range Urinalysis in House (FAA) Urine IH Protein neg Glucose neg URINALYSIS IN HOUSE GLUC neg DELFINA neg KET neg SG 1.025 BLO neg PH 5.5 PRO neg URO 0.2 e./ud NIT neg ROQUE neg REASON FOR VISIT [id number], [id number]
[2023-01-05 20:21] LABS: PSA, Screening 3.5 ng/mL (<=4.5)
== END 2023-01-05 15:43 | disposition home or self-care (01) ==
LOC: LBO 15:57
PROVIDERS: PCP Nurse Practitioner Family; Visit Provider Nurse Practitioner Family
DX: E11.9 Type 2 diabetes mellitus without complications (principal); I10 Essential (primary) hypertension; Z12.5 Encounter for screening for malignant neoplasm of prostate; E88.81 Metabolic syndrome and other insulin resistance; E78.5 Hyperlipidemia, unspecified; E78.1 Pure hyperglyceridemia; E78.6 Lipoprotein deficiency
CPT/HCPCS: 36415; 80053; 80061; 84153; 82043; 82570; 83036

== ENCOUNTER 2023-04-13 18:13 | Outpatient (REF) | payer BC, SELFPAY ==
[2023-04-13 16:27] LABS: Anion Gap 8.1 mmol/L (3-11); BUN 25 mg/dL (7-18); CO2 25.9 mmol/L (21.0-32.0); CREATININE 1.5 mg/dL (0.70-1.30); Calcium 9.7 mg/dL (8.5-10.1); Chloride 107 mmol/L (98-107); Estimated GFR 51.99 (mL/min/1.73m2); Glucose 115 mg/dL (74-106); Potassium 4.4 mmol/L (3.5-5.1); Sodium 141 mmol/L (136-145)
== END 2023-04-13 18:14 | disposition home or self-care (01) ==
LOC: NCHCN 18:13
PROVIDERS: PCP Nurse Practitioner Family; Visit Provider Nurse Practitioner Family
DX: I10 Essential (primary) hypertension (principal); E11.9 Type 2 diabetes mellitus without complications; Z87.438 Personal history of other diseases of male genital organs
CPT/HCPCS: 80048

== ENCOUNTER 2023-06-16 20:42 | Outpatient (REF) | payer MEDICARE, BC, SELFPAY ==
[2023-06-16 21:58] LABS: Anion Gap 11.6 mmol/L (3-11); BUN 23 mg/dL (7-18); CO2 25.4 mmol/L (21.0-32.0); CREATININE 1.6 mg/dL (0.70-1.30); Calcium 9.8 mg/dL (8.5-10.1); Chloride 105 mmol/L (98-107); Estimated GFR 48.11 (mL/min/1.73m2); Glucose 138 mg/dL (74-106); Potassium 3.8 mmol/L (3.5-5.1); Sodium 142 mmol/L (136-145)
== END 2023-06-16 20:43 | disposition home or self-care (01) ==
LOC: NCHCN 20:42
PROVIDERS: PCP Nurse Practitioner Family; Visit Provider Nurse Practitioner Family
DX: I10 Essential (primary) hypertension (principal)
CPT/HCPCS: 80048

== ENCOUNTER 2023-10-25 13:50 | Outpatient (REF) | payer MEDICARE, BC, SELFPAY ==
[2023-10-25 14:29] LABS: Absolute Basophil Count 0.01 10^3/uL (0.0-0.2); Absolute Eosinophil Count 0.03 10^3/uL (0.0-0.7); Absolute Lymphocyte Count 1.79 10^3/uL (1.2-3.4); Absolute Monocyte Count 0.34 10^3/uL (0.1-0.8); Absolute Neutrophil Count 2.12 10^3/uL (1.2-6.7); Basophils % 0.2 %; Eosinophils % 0.7 %; HCT 47.2 % (40.0-50.0); HGB 15.5 g/dL (13.5-17.5); Lymphocytes % 41.7 %; MCHC 32.8 % (32.0-36.0); MCV 82 fL (80-95); MPV 9.6 fL (8.0-11.0); Monocytes % 7.9 %; Neutrophils % 49.5 %; Platelet Count 211 10^3/uL (130-400); RBC 5.74 10^6/uL (4.36-5.78); RDW 13.3 % (11.8-14.1); RDW-SD 39.6 fL; WBC 4.29 10^3/uL (4.4-10.8)
[2023-10-25 15:23] LABS: ALT 35 U/L (16-63); AST 18 U/L (15-37); Albumin 4.6 g/dL (3.4-5.0); Alkaline Phosphatase 72 U/L (46-116); Anion Gap 9.5 mmol/L (3-11); BUN 16 mg/dL (7-18); Bilirubin, Total 0.5 mg/dL (0.2-1.0); CO2 30.5 mmol/L (21.0-32.0); CREATININE 1.2 mg/dL (0.70-1.30); Calcium 9.4 mg/dL (8.5-10.1); Chloride 106 mmol/L (98-107); Estimated GFR 67.53 (mL/min/1.73m2); Glucose 116 mg/dL (74-106); Potassium 4.3 mmol/L (3.5-5.1); Sodium 146 mmol/L (136-145); TSH (W/Ref FT4) 2.01 uIU/mL (0.36-3.74); Total Protein 7.7 g/dL (6.4-8.2); Vitamin B12 355 pg/mL (193-986)
== END 2023-10-25 13:51 | disposition home or self-care (01) ==
LOC: NCHCN 13:50
PROVIDERS: PCP Nurse Practitioner Family; Visit Provider Nurse Practitioner Family
DX: R53.83 Other fatigue (principal)
CPT/HCPCS: 80053; 82607; 84443; 85025

== ENCOUNTER → 2024-01-04 08:18 | Outpatient (BNVA) | payer MEDICARE, BC, SELFPAY | PROVIDERS: PCP Nurse Practitioner Family; Visit Provider Urology | DX: N40.1 Benign prostatic hyperplasia with lower urinary tract symptoms (principal); R35.1 Nocturia | CPT/HCPCS: 51798; 99213 ==

== ENCOUNTER 2024-02-01 21:17 | Outpatient (REF) | payer MEDICARE, BC, SELFPAY ==
[2024-02-03 20:49] LABS: COMMENT (LAB VIEW ONLY) 207.49 mg/dL; Microalb ug/mg Crea 4.9 ug/mg Cr
== END 2024-02-01 21:18 | disposition home or self-care (01) ==
LOC: NCHCN 21:17
PROVIDERS: PCP Nurse Practitioner Family; Visit Provider Nurse Practitioner Family
DX: E11.9 Type 2 diabetes mellitus without complications (principal)
CPT/HCPCS: 82043; 82570

== ENCOUNTER 2024-09-08 07:43 | Emergency (ER) | payer MEDICARE, BC, SELFPAY ==
[2024-09-08 07:48] VITALS: BP 175/100; PULSE 106; RESP 20; O2SAT 99
--- NOTE | 2024-09-08 07:48 | ED.GENADUL_ITS ---
Discharge Plan Disposition Patient Disposition: Home Condition: Good Discharge Details Clinical Impression: Acute urinary retention Primary Care Provider: Rita Cross ED Provider: Vimal Barnes Home Meds and New Rx's Prescriptions: No Action amlodipine 10 mg tablet 10 mg PO DAILY tamsulosin [Flomax] 0.4 mg capsule 0.4 mg PO DAILY Qty: 90 4RF atorvastatin 40 mg tablet 40 tab PO DAILY Patient Comments: TAKE 1 TABLET BY MOUTH AT BEDTIME fenofibrate micronized 200 mg capsule 1 cap PO DAILY Patient Comments: Take 1 capsule by mouth once a day lisinopril-hydrochlorothiazide 10-12.5 mg tablet 1 tab PO DAILY Patient Comments: Take 1 tablet by mouth once a day metformin 500 mg tablet extended release 24 hr 1 tab PO DAILY Discharge Instructions Instructions: How to Care for Your Mcgowan Catheter, Urinary Retention Additional Instructions: At this time you have urinary retention has been resolved with a Mcgowan catheter. This is likely because of an enlarged prostate. Please continue taking your Flomax as prescribed. Please follow-up closely with Dr. Rodney to have the Mcgowan catheter removed in the next week or so. If you notice any worsening of your symptoms, or any new symptoms such as vomiting, diarrhea, fever, chills, shortness of breath, chest pain, numbness, weakness, or fainting , please return immediately to the emergency department for reevaluation. Please follow up with your primary care provider as soon as possible for reassessment and reevalu ation. As always, it was a pleasure participating in your medical care today. Referrals: Francis Rodney MD [ [facility] STAFF PHYSICIAN] - Rita Cross [Primary Care Provider] - [facility] General Date/Time Provider Initiated Documentation: 09/08/24 07:44 . [facility] Narrative: Mr. Mcgowan is a 64-year-old male with a past medical history of BPH, hypertension, lower urinary tract symptoms, diabetes, high cholesterol, takes Flomax daily, presents today for evaluation of urinary retention. It is currently 7:49 AM, and the patient states that he has not urinated since 1 AM this morning. He admits to a significant pressure-like sensation in his suprapubic region. He denies fever or chills, no recent dysuria, no recent blood in his urine. He is not on any blood thinners and denies any history of clots. No other complaints at this time. He did require Mcgowan catheter insertion a few years ago for an episode of retention then as well. Related Data Home Medications ?Medication ?Instructions ?Recorded ?Confirmed atorvastatin 40 mg tablet 40 tab PO DAILY 12/13/21 09/08/24 fenofibrate micronized 200 mg 1 cap PO DAILY 12/13/21 09/08/24 capsule lisinopril 10 1 tab PO DAILY 12/13/21 09/08/24 mg-hydrochlorothiazide 12.5 mg tablet metformin 500 mg tablet,extended 1 tab PO DAILY 12/13/21 09/08/24 release 24 hr amlodipine 10 mg tablet 10 mg PO DAILY 10/26/23 09/08/24 tamsulosin 0.4 mg capsule (Flomax) 0.4 mg PO DAILY #90 caps 01/13/24 09/08/24 Previous Rx's ?Medication ?Instructions ?Recorded tamsulosin 0.4 mg capsule (Flomax) 0.4 mg PO DAILY #90 caps 01/13/24 Allergies Allergy/AdvReac Type Severity Reaction Status Date / Time No Known Allergies Allergy Unverified 09/08/24 07:54 General FELIPE: 3 Exam Narrative Exam Narrative: 1.Const: Well-nourished, Well-developed, appearing stated age 2.Eyes: PERRL, no conjunctival injection, and symmetrical lids. 3.ENT: Atraumatic external nose and ears. Moist MM. Neck: Symmetric, trachea midline, No thyromegaly. 4.CVS: +S1/S2, Peripheral pulses 2+ and equal in all extremities. Brisk capillary refill in all extremities. 5.RESP: Unlabored respiratory effort. Clear to auscultation bilaterally. No wheezes rales or rhonchi 6.GI: Soft, Nontender/Nondistended, No hepatosplenomegaly. No guarding or rebound. Genital exam demonstrates unremarkable male genitalia with no evidence of redness swelling or tenderness. He does have notable palpable bladder which feels quite full. No blood at the urethral meatus. 7.MSK: Normocephalic/Atraumatic, Extremities w/o deformity or ttp No cyanosis or clubbing, Normal movement of all extremities 8.Skin: Warm, Dry. No rashes or lesions. 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 Sensation grossly intact, no focal neurologic deficits. 10.Psych: (AAO) x3. Appropriate mood and affect Medical Decision Making Mr. Mcgwoan is a 64-year-old male with a past medical history of BPH, hypertension, lower urinary tract symptoms, diabetes, high cholesterol, takes Flomax daily, presents today for evaluation of urinary retention. It is currently 7:49 AM, and the patient states that he has not urinated since 1 AM this morning. He admits to a significant pressure-like sensation in his suprapubic region. He denies fever or chills, no recent dysuria, no recent blood in his urine. He is not on any blood thinners and denies any history of clots. No other complaints at this time. He did require Mcgowan catheter insertion a few years ago for an episode of retention then as well. Exam demonstrates signs and symptoms concerning for obstruction likely secondary to BPH. No fever or chills or redness to suggest infection, pyelonephritis. No history of bleeding or clots or blood thinner use to suggest clot caused retention. Will place a Mcgowan catheter, check UA, monitor closely and reassess. 8:51 AM Patient had 1000 mL of urine. Patient feels much better. Urinalysis shows no infection or significant blood. Patient feels well. He will be given a Mcgowan catheter for home. Urology follow-up will be referred to Dr. Rodney. Discussed red flags for which to return. I have extensively reviewed the treatment plan and discharge instructions with the patient. I have addressed all patient concerns at this time. The patient was made aware of what symptoms to monitor for that would warrant a return to the emergency department. Discussed the plan with the patient, they demonstrate verbal understanding and agreement with our assessment and plan at this time. The documentation in this chart was dictated using [employer] dictation software. Please excuse any dictation errors. Quality:SDOH Health Related Social Needs: No Data to Display PFSH All Active Problems (Updated 09/08/24 @ 08:01 by Vimal Barnes DO) Acute urinary retention (Acute) Unspecified Eustachian tube disorder, left ear (Acute) Lower urinary tract symptoms (LUTS) (Acute) Hyperplastic colon polyp (Acute) Aortic valve sclerosis (Acute) Screening for colon cancer (Acute) Medical History (Updated 09/08/24 @ 08:01 by Vimal Barnes DO) Polyp of colon Hearing loss of right ear History of benign neoplasm of brain Dizziness and giddiness Pure hyperglyceridemia HLD (hyperlipidemia) Diabetes mellitus type 2, uncomplicated BPH (benign prostatic hyperplasia) Fatigue Cecal polyp Torsion of right testicle Trauma; removed 1971 Metabolic syndrome Bilateral leg pain Pain, joint, shoulder Obesity Diabetes HTN (hypertension) Surgical History (Updated 10/26/23 @ 13:55 by Caitlyn Osullivan RN) H/O removal of testicle left History of colonoscopy with polypectomy (~03/26/22) S/P ventral herniorrhaphy Fracture of left leg with repair Biceps muscle tear with repair Meningioma with resection Social History Smoking/Tobacco Use Status: Current-Occasional Tobacco Type: cigars Smoking risk assessment performed?: Yes Alcohol Intake: current Alcohol Intake frequency: a few times a month Alcohol type: hard liquor Drug use: Never Substance use type: does not use Do you feel safe at home: Yes Do you feel safe in your relationship?: Yes
[2024-09-08 07:52] VITALS: TEMP 36.6
[2024-09-08 08:16] VITALS: BP 127/78; PULSE 74
[2024-09-08 08:20] LABS: Bilirubin Negative (Negative); Blood Trace-intact (Negative); Clarity Clear (Clear); Glucose Negative (Negative); Ketones Negative (Negative); Leukocyte Esterase Negative (Negative); Nitrite Negative (Negative); Urobilinogen 0.2 mg/dL (Up to 0.2); pH 5.5 (5-8)
[2024-09-08] MEDS: Lidocaine 2% Jelly 6 ML SYR (08:30)
[2024-09-08 08:31] VITALS: BP 138/72; PULSE 75; O2SAT 99
[2024-09-08 08:31] LABS: Bacteria Rare HPF (Negative); Epithelial Cells Rare HPF (Negative); WBC 0-2 HPF (0-5)
[2024-09-08 08:32] LABS: C & S Indicated? No; Casts Negative LPF (Negative); Crystals Negative HPF (Negative); Mucus Negative (Negative)
== END 2024-09-08 09:11 | disposition home or self-care (01) ==
LOC: ER 08:24
PROVIDERS: Emergency Provider Student in an Organized Health Care Education/Training Program; PCP Nurse Practitioner Family
DX: N40.1 Benign prostatic hyperplasia with lower urinary tract symptoms (principal); R33.9 Retention of urine, unspecified; I10 Essential (primary) hypertension; E78.5 Hyperlipidemia, unspecified; E11.9 Type 2 diabetes mellitus without complications; Z79.84 Long term (current) use of oral hypoglycemic drugs; Z79.899 Other long term (current) drug therapy; F17.290 Nicotine dependence, other tobacco product, uncomplicated
CPT/HCPCS: 99284; 81003; 81015

== ENCOUNTER 2024-09-11 15:00 | Outpatient (REF) | payer MEDICARE, BC, SELFPAY ==
[2024-09-11 21:42] LABS: HCT 42.6 % (40.0-50.0); HGB 14.3 g/dL (13.5-17.5); MCH 27.2 pg (27.0-33.0); MCHC 33.6 % (32.0-36.0); MCV 81 fL (80-95); Platelet Count 259 10^3/uL (130-400); RBC 5.25 10^6/uL (4.36-5.78); RDW 13.2 % (11.8-14.1); RDW-SD 38.8 fL; WBC 5.71 10^3/uL (4.4-10.8)
[2024-09-11 22:36] LABS: ALT 27 U/L (16-63); AST 21 U/L (15-37); Alkaline Phosphatase 82 U/L (46-116); Anion Gap 11.2 mmol/L (3-11); BUN 20 mg/dL (7-18); Bilirubin, Total 0.5 mg/dL (0.2-1.0); CO2 23.8 mmol/L (21.0-32.0); CREATININE 1.3 mg/dL (0.70-1.30); Calcium 9.5 mg/dL (8.5-10.1); Calculated LDL 95 mg/dL (<100); Chloride 109 mmol/L (98-107); Cholesterol 158 mg/dL (<200); Estimated GFR 60.96 (mL/min/1.73m2); Glucose 112 mg/dL (74-106); HDL Cholesterol 41 mg/dL (>or=40); Potassium 4.1 mmol/L (3.5-5.1); Sodium 144 mmol/L (136-145); Total Protein 7.5 g/dL (6.4-8.2); Triglyceride 114 mg/dL (<150)
[2024-09-11 22:53] LABS: Hemoglobin A1C 6.2 % (<5.7)
== END 2024-09-11 15:01 | disposition home or self-care (01) ==
LOC: NCHCN 15:00
PROVIDERS: PCP Nurse Practitioner Family; Visit Provider Nurse Practitioner Family
DX: I10 Essential (primary) hypertension (principal)
CPT/HCPCS: 80053; 80061; 85027; 83036

== ENCOUNTER → 2024-09-13 07:53 | Outpatient (BNVA) | payer MEDICARE, BC, SELFPAY | PROVIDERS: PCP Nurse Practitioner Family; Referring Provider Nurse Practitioner Family; Visit Provider Nurse Practitioner Gerontology | DX: R33.8 Other retention of urine (principal) | CPT/HCPCS: 99211 ==

== ENCOUNTER 2024-10-06 00:17 | Outpatient (CLI) | payer MEDICARE, BC, SELFPAY ==
--- NOTE | 2024-10-06 | DI.US_ITS ---
Exam(s) US AAA SCREENING EXAM: US AAA SCREENING CLINICAL HISTORY: I99.9 Unspecified disorder of circulatory system, current smoker COMPARISON: US US ECHOCARDIOGRAM from 11/12/2020 FINDINGS: There is no evidence of significant abdominal aortic aneurysm. Maximum diameter the abdominal aorta is 2.3 cm. Diameter of the visualized common iliac arteries is upper normal. IMPRESSION: No evidence of significant abdominal aortic aneurysm. DATA REPOSITORY:
== END 2024-10-06 00:37 ==
LOC: DI 00:17
PROVIDERS: PCP Nurse Practitioner Family; Visit Provider Nurse Practitioner Family
DX: I99.9 Unspecified disorder of circulatory system (principal); F17.210 Nicotine dependence, cigarettes, uncomplicated; Z13.6 Encounter for screening for cardiovascular disorders
CPT/HCPCS: 76706

== ENCOUNTER → 2025-01-02 08:11 | Outpatient (BNVA) | payer MEDICARE, BC, SELFPAY | PROVIDERS: PCP Nurse Practitioner Family; Visit Provider Urology | DX: N40.1 Benign prostatic hyperplasia with lower urinary tract symptoms (principal); N13.8 Other obstructive and reflux uropathy; R39.9 Unspecified symptoms and signs involving the genitourinary system | CPT/HCPCS: 99213; 51798 ==

== ENCOUNTER 2025-01-17 10:32 | Outpatient (CLI) | payer MEDICARE, BC, SELFPAY ==
[2025-01-17 18:27] LABS: PSA, Diagnostic 4.4 ng/mL (<=4.5)
== END 2025-01-17 10:33 | disposition home or self-care (01) ==
LOC: LBO 10:32
PROVIDERS: PCP Nurse Practitioner Family; Visit Provider Urology
DX: N13.8 Other obstructive and reflux uropathy (principal); N40.1 Benign prostatic hyperplasia with lower urinary tract symptoms
CPT/HCPCS: 36415; 84153

== ENCOUNTER 2025-02-05 18:29 | Outpatient (REF) | payer MEDICARE, BC, SELFPAY ==
[2025-02-05 16:01] LABS: COMMENT (LAB VIEW ONLY) 170.48 mg/dL; Microalb ug/mg Crea 3.2 ug/mg Cr
== END 2025-02-05 18:30 | disposition home or self-care (01) ==
LOC: NCHCN 18:29
PROVIDERS: PCP Nurse Practitioner Family; Visit Provider Nurse Practitioner Family
DX: E11.9 Type 2 diabetes mellitus without complications (principal)
CPT/HCPCS: 82043; 82570